=== PATIENT | male | born 1955 ===

== ENCOUNTER 2021-09-15 15:36 | Emergency (ER) | payer OTHER ==
[~2021-09-15] VITALS: Ht 175.3 cm; Wt 77.1 kg
[2021-09-15] MEDS ORDERED: HYDROcodone-ACET 10/325MG TAB PO ONE (19:00)
[2021-09-16] MEDS ORDERED: HYDROcodone-ACET 10/325MG TAB PO ONE (07:45)
[2021-09-16 11:24] LABS: Basophils # (auto) 0 10 ^3/uL (0-0.2); Basophils % (auto) 0.3 % (0.0-2.0); Eosinophils # (auto) 0 10 ^3/uL (0-0.8); Eosinophils % (auto) 0.1 % (0.0-7.0); Hemoglobin 13.1 g/dL (13.5-17.5); Lymphocytes % (auto) 7.6 % (10.0-50.0); Mean Corpuscular Hemoglobin 30.1 pg (28.0-32.0); Mean Corpuscular Hgb Conc. 33.6 g/dL (32.0-36.0); Mean Corpuscular Volume 89.7 fL (80.0-100.0); Monocytes # (auto) 0.8 10 ^3/uL (0-1.3); Monocytes % (auto) 6.3 % (0.0-12.0); Neutrophils # (auto) 11.2 10 ^3/uL (1.6-8.6); Neutrophils % (auto) 85.7 % (37.0-80.0); Red Blood Cells 4.35 10^6/uL (4.5-5.90); Red Cell Distribution Width 13.6 % (11.8-14.3); White Blood Cell 13.1 10^3/uL (4.4-10.8)
[2021-09-16 11:25] LABS: Albumin 3.4 g/dL (3.4-5.0); Calcium 8.4 mg/dL (8.5-10.1); Potassium 4.1 mmol/L (3.5-5.1)
[2021-09-16 11:31] LABS: BUN/Creatinine Ratio 15.3; Bilirubin, Total 0.9 mg/dL (0.2-1.0); Total Protein 7.1 g/dL (6.4-8.2)
[2021-09-16 11:34] LABS: INR 1.01 (0.9-1.15); Partial Thromboplastin Time 26.8 sec (23.6-33.0)
[2021-09-16] MEDS ORDERED: ONDANSETRON HCL 4 MG/2 ML VIAL IV ONE (14:15)
[2021-09-16] MEDS ORDERED: HYDROmorphone HCL 2 MG/ML VL IV ONE (14:15)
[2021-09-16 14:36] VITALS: BP 146/91
== END 2021-09-16 14:41 | disposition short-term general hospital (02) ==
LOC: EDBD 15:36 → ER 15:36
DX: S42.392A Other fracture of shaft of left humerus, initial encounter for closed fracture (principal); W11.XXXA Fall on and from ladder, initial encounter; Y93.89 Activity, other specified; Y92.89 Other specified places as the place of occurrence of the external cause; Y99.8 Other external cause status; M54.2 Cervicalgia
CPT/HCPCS: 36415; 71260; 72129; 72132; 72193; 73030; 73502; 74177; 80053; 84484; 85025; 85610; 85730; 93005; 96374; 96375; 99285; J1170; J2405